=== PATIENT | male | born 1985 | race African-American/Black ===

== ENCOUNTER 2019-10-11 21:10 | Emergency (ER) | payer MEDICAID ==
[~2019-10-11] VITALS: Ht 198.1 cm; Wt 155.0 kg
[2019-10-11 21:17] VITALS: BP 120/68
[2019-10-11 22:12] LABS: MICROSCOPIC INDICATED
[2019-10-11] MEDS ORDERED: SODIUM CHLORIDE 0.9% 1,000ML IVBOLUS ONE (22:30)
[2019-10-11 23:01] LABS: ALBUMIN 3.1 g/dL (3.4-5.0); ANION GAP 7 mmol/L (5-15); CALCIUM 8.4 mg/dL (8.5-10.1); CHLORIDE 108 mmol/L (98-107)
[2019-10-11 23:05] LABS: ALANINE AMINOTRANSFERASE 121 U/L (12-78); ALKALINE PHOSPHATASE 88 U/L (45-117); BILIRUBIN,TOTAL 0.7 mg/dL (0.2-1.0); CREATININE 1.14 mg/dL (0.7-1.3); TOTAL PROTEIN 7.2 g/dL (6.4-8.2)
[2019-10-11 23:20] LABS: MD YES; MEAN CORPUSCULAR HEMOGLOBIN 27.5 pg (27.5-34.5); MEAN CORPUSCULAR HGB CONC 32.7 g/dL (33.2-36.2); MEAN CORPUSCULAR VOLUME 84.1 fL (81-97); MEAN PLATELET VOLUME 8.4 fL (7.4-10.4); PLATELET COUNT 230 x10^3/uL (130-400); RED BLOOD COUNT 4.77 x10^6/uL (4.38-5.82); RED CELL DISTRIBUTION WIDTH 13.4 % (9.4-14.8)
[2019-10-11 23:25] LABS: <RBC MORPHOLOGY> NORMAL; EOS% (MANUAL) 3 % (1-7); LYMPHS% (MANUAL) 17 % (22-44); MONOS% (MANUAL) 5 % (2-9); REACTIVE LYMPHS % (MANUAL) 1 % (0-0); SEGS% (MANUAL) 74 % (42-75)
[2019-10-11 23:26] LABS: <PLATELET ESTIMATE> ADEQUATE
[2019-10-11 23:30] LABS: <PLT MORPHOLOGY> NORMAL PLT MORPH
== END 2019-10-12 03:01 | disposition home or self-care (01) ==
LOC: ED 23:55
DX: E86.0 Dehydration (principal); R31.9 Hematuria, unspecified; R10.9 Unspecified abdominal pain; F13.10 Sedative, hypnotic or anxiolytic abuse, uncomplicated; F17.200 Nicotine dependence, unspecified, uncomplicated
CPT/HCPCS: 36415; 80053; 81001; 83690; 85025; 99283; J7030

== ENCOUNTER 2019-11-07 17:17 | Emergency (ER) | payer MEDICAID ==
[~2019-11-07] VITALS: Ht 198.1 cm; Wt 124.9 kg
[2019-11-07 17:19] VITALS: BP 135/76
[2019-11-07] MEDS ORDERED: IBUPROFEN 600 MG TABLET PO ONE (17:30)
[2019-11-07] MEDS ORDERED: LIDOCAINE-MPF 1%, 5ML INFIL ONE (17:30)
[2019-11-07] MEDS ORDERED: CEPHALEXIN 500 MG CAPSULE PO ONE (17:30)
[2019-11-07] MEDS ORDERED: SULFAMETH./TRIMETHOPRIM DS 800MG/160MG TABLET PO ONE (17:30)
[2019-11-07] MEDS ORDERED: OXYcodone/APAP 5/325MG TABLET PO ONE (17:30)
[2019-11-07] MEDS ORDERED: DIPH,PERTUSS(ACELL),TET VAC/PF 0.5 ML IM-VACC ONE ×2 (17:30→17:41)
--- NOTE | 2019-11-07 17:35 | NUR ---
FIRST CONTACT WITH PT. PT HAS CO RIGHT FOOT INJURY. PT STATES "I THINK I HAVE AN ABCESS ON MY FOOT" PT DENIES ANY OTHER SX. PT'S AOX4. RESPS EVEN AND UNLABORED.
[2019-11-07] MEDS ORDERED: IBUPROFEN 600 MG TABLET ONE (17:40)
[2019-11-07] MEDS ORDERED: SULFAMETH./TRIMETHOPRIM DS 800MG/160MG TABLET ONE (17:40)
[2019-11-07] MEDS ORDERED: CEPHALEXIN 500 MG CAPSULE ONE (17:40)
[2019-11-07] MEDS ORDERED: LIDOCAINE-MPF 1%, 2ML ONE (17:40)
[2019-11-07] MEDS ORDERED: OXYcodone/APAP 5/325MG TABLET ONE (17:41)
--- NOTE | 2019-11-07 17:49 | NUR ---
PT MEDICATED PER EMAR. PT TOLERATED WELL.
[2019-11-07] MEDS ORDERED: NEOSPORIN OINT. PKT 1 PACKET ONE (18:36)
--- NOTE | 2019-11-07 18:48 | NUR ---
REPORT GIVEN TO GALILEO CORNELIUS.
== END 2019-11-07 19:49 | disposition home or self-care (01) ==
LOC: ED 17:27
DX: L60.0 Ingrowing nail (principal); L03.031 Cellulitis of right toe
CPT/HCPCS: 11730; 90471; 90715; 99284

== ENCOUNTER 2019-12-25 10:30 | Emergency (ER) | payer MEDICAID ==
--- NOTE | 2019-12-25 10:33 | NUR ---
NO ANSWER IN LOBBY.
--- NOTE | 2019-12-25 10:39 | NUR ---
NO NAN IN LOBBY.
--- NOTE | 2019-12-25 10:47 | NUR ---
NO ANSWER IN LOBBY.
== END 2019-12-25 11:02 ==
LOC: ED 10:40
DX: M79.673 Pain in unspecified foot (principal); Z53.21 Procedure and treatment not carried out due to patient leaving prior to being seen by health care provider

== ENCOUNTER 2020-02-19 17:10 | Emergency (ER) | payer MEDICAID ==
[~2020-02-19] VITALS: Ht 198.1 cm; Wt 137.9 kg
--- NOTE | 2020-02-19 17:16 | NUR ---
CALL X1
--- NOTE | 2020-02-19 17:21 | NUR ---
CALL X2
--- NOTE | 2020-02-19 17:28 | NUR ---
CALL X3
[2020-02-19 17:35] VITALS: BP 152/74
--- NOTE | 2020-02-19 18:18 | NUR ---
TASK RN: PT AMBULATED TO RESTROOM WITH STEADY GAIT TO PROVIDE URINE SAMPLE. UA COLLECTED AND SENT TO LAB.
[2020-02-19 18:22] LABS: BASOPHILS % (AUTO) 1 % (0-1); EOSINOPHILS % (AUTO) 1 % (1-7); LYMPHOCYTES % (AUTO) 24 % (22-44); MEAN CORPUSCULAR HEMOGLOBIN 27.5 pg (27.5-34.5); MEAN CORPUSCULAR HGB CONC 32.7 g/dL (33.2-36.2); MONOCYTES % (AUTO) 11 % (2-9); NEUTROPHILS % (AUTO) 63 % (42-75); PLATELET COUNT 335 x10^3/uL (130-400); RED BLOOD COUNT 5.16 x10^6/uL (4.38-5.82); RED CELL DISTRIBUTION WIDTH 14.4 % (9.4-14.8)
[2020-02-19 18:23] LABS: MD NO
[2020-02-19] MEDS ORDERED: CEFTRIAXONE 250 MG IM ONE ×2 (18:30)
[2020-02-19] MEDS ORDERED: AZITHROMYCIN 500 MG TABLET PO ONE (18:30)
[2020-02-19 18:32] LABS: ALBUMIN 3.4 g/dL (3.4-5.0); ANION GAP 4 mmol/L (5-15); CALCIUM 9.2 mg/dL (8.5-10.1); CHLORIDE 108 mmol/L (98-107); CREATININE 1.04 mg/dL (0.7-1.3)
[2020-02-19] MEDS ORDERED: CEFTRIAXONE 1,000 MG ONE (18:35)
[2020-02-19] MEDS ORDERED: AZITHROMYCIN 500 MG TABLET ONE (18:35)
[2020-02-19 18:37] LABS: MICROSCOPIC INDICATED
== END 2020-02-19 19:30 | disposition home or self-care (01) ==
LOC: ED 17:56
DX: N34.1 Nonspecific urethritis (principal); R00.0 Tachycardia, unspecified; F17.200 Nicotine dependence, unspecified, uncomplicated; E11.9 Type 2 diabetes mellitus without complications
CPT/HCPCS: 36415; 80048; 81001; 82040; 82962; 85025; 87086; 87491; 87591; 93005; 96372; 99284; J0696

== ENCOUNTER 2020-04-24 00:43 | Emergency (ER) | payer MEDICAID ==
[~2020-04-24] VITALS: Ht 198.1 cm; Wt 136.0 kg
[2020-04-24] MEDS ORDERED: OLANZAPINE 10 MG TABLET PO ONE (01:18)
[2020-04-24 01:59] LABS: BASOPHILS % (AUTO) 1 % (0-1); EOSINOPHILS % (AUTO) 0 % (1-7); LYMPHOCYTES % (AUTO) 16 % (22-44); MEAN CORPUSCULAR HEMOGLOBIN 27.5 pg (27.5-34.5); MEAN CORPUSCULAR HGB CONC 32.8 g/dL (33.2-36.2); MEAN PLATELET VOLUME 7.9 fL (7.4-10.4); MONOCYTES % (AUTO) 9 % (2-9); NEUTROPHILS % (AUTO) 74 % (42-75); PLATELET COUNT 223 x10^3/uL (130-400); RED BLOOD COUNT 5.24 x10^6/uL (4.38-5.82); RED CELL DISTRIBUTION WIDTH 14.2 % (9.4-14.8)
--- NOTE | 2020-04-24 02:00 | NUR ---
pt to room, out of own clothes, warm blanket provied. Pt attached to monitor. Pt calm and cooperateive.
[2020-04-24 02:06] LABS: MD NO
[2020-04-24 02:14] LABS: ALBUMIN 3.6 g/dL (3.4-5.0); ANION GAP 6 mmol/L (5-15); CHLORIDE 110 mmol/L (98-107)
[2020-04-24 02:24] LABS: ALANINE AMINOTRANSFERASE 26 U/L (12-78); ALKALINE PHOSPHATASE 78 U/L (45-117); BILIRUBIN,TOTAL 0.5 mg/dL (0.2-1.0); CREATININE 1.22 mg/dL (0.7-1.3); TOTAL PROTEIN 7.4 g/dL (6.4-8.2)
[2020-04-24] MEDS ORDERED: OLANZAPINE 10 MG TABLET ONE (02:51)
--- NOTE | 2020-04-24 03:04 | NUR ---
Pt provided urine sample, sent to lab. Pt back on monitor. medicated per order. Pt remains A&O, calm and cooperateive. Addendum: 04/24/20 at 0304 by [email or web address] Pt free of harm, and safe in room.
[2020-04-24 03:21] LABS: AMPHETAMINE SCREEN, URINE Positive (Negative); BARBITURATE SCREEN, URINE Negative (Negative); BENZODIAZEPINE SCREEN, URINE Negative (Negative); CANNABINOID SCREEN, URINE Negative (Negative); COCAINE SCREEN, URINE Negative (Negative); METHADONE SCREEN, URINE Negative (Negative); OPIATE SCREEN, URINE Negative (Negative)
--- NOTE | 2020-04-24 03:49 | NUR ---
pt calm, free from harm in room. Tele psych doc monitor at bedside. Will continue to monitor closely.
[2020-04-24] MEDS ORDERED: ZIPRASIDONE 20 MG INJ IM ONE ×2 (04:30→04:54)
--- NOTE | 2020-04-24 04:47 | NUR ---
pt calm, free of harm in room. Food provided. Will continue to monitor. All belongings are locked in locker
[2020-04-24 04:52] VITALS: BP 109/74
--- NOTE | 2020-04-24 05:07 | NUR ---
Pt medicated per order. Will monitor. Pt wanting to leave. Explained to patient importance of staying. Pt remains in room at this time.
--- NOTE | 2020-04-24 05:25 | NUR ---
packet faxed to [facility]
--- NOTE | 2020-04-24 05:28 | NUR ---
Pt now calm, sleeping in bed. pt remains free of harm. VSS, on monitor. Will monitor.
--- NOTE | 2020-04-24 05:48 | NUR ---
PATIENT RESTING IN BED WITH EYES CLOSED. IN NAD. 1:1 SITTER IN VIEW OF PATIENT. SAFETY MAINTAINED. WILL CONTINUE TO MONITOR.
--- NOTE | 2020-04-24 06:20 | NUR ---
TP: [facility] WILL REASSESS PT AFTER 12 HRS BECAUSE HE RECIEVED GEODON AT 0500
--- NOTE | 2020-04-24 07:13 | NUR ---
report given to Neftali CORNELIUS
--- NOTE | 2020-04-24 08:35 | NUR ---
PT PROVIDED WITH MEAL TRAY. DENIES FURTHER NEEDS AT THIS TIME
--- NOTE | 2020-04-24 08:40 | NUR ---
CHARGE NURSE NOTE: REQUESTED SITTER OF NURSING OPERATIONS BUT NO SITTERS AVAILABLE AT THIS TIME.
== END 2020-04-24 11:11 | disposition home or self-care (01) ==
LOC: ED 09:35
DX: F25.0 Schizoaffective disorder, bipolar type (principal); F15.10 Other stimulant abuse, uncomplicated; R45.851 Suicidal ideations; E11.9 Type 2 diabetes mellitus without complications; Z91.19 Patient's noncompliance with other medical treatment and regimen; Z72.9 Problem related to lifestyle, unspecified
CPT/HCPCS: 36415; 80053; 80299; 80307; 80320; 80329; 84443; 85025; 96372; 99284; J3486; G0480

== ENCOUNTER 2020-10-28 03:22 | Emergency (ER) | payer MEDICAID ==
--- NOTE | 2020-10-28 03:29 | NUR ---
PT NOT IN LOBBY FOR TRIAGE HE TOOK HIMSELF TO [facility] AT THIS TIME
== END 2020-10-28 04:03 | disposition left against medical advice (07) ==
LOC: ED 04:00
DX: L30.8 Other specified dermatitis (principal); Z53.21 Procedure and treatment not carried out due to patient leaving prior to being seen by health care provider